=== PATIENT | female | born 1995 | race Caucasian/White ===

== ENCOUNTER 2021-01-24 15:26 | Inpatient (IN) ==
[2021-01-24] MEDS ORDERED: SODIUM CHLORIDE 0.9% 1000ML 1,000 ML IV STA (15:37)
--- NOTE | 2021-01-24 16:05 | Emergency Department Note ---
Impression & Plan Severe anemia ED Provider Note INFORMANT: Patient ED PROVIDER(S): Tru Martínez MD CHIEF COMPLAINT: Anemia PLAN: Disposition: Admitted Condition: Guarded Outpatient prescription management: none Referral: None MEDICAL DECISION MAKING: Patient presented with signs and symptoms concerning for severe anemia. Outpatient blood work was very concerning. Blood work was repeated and revealed severe iron deficiency and significant anemia requiring immediate transfusion. The patient was consented. I gave my usual and customary discussion regarding this issue. Blood transfusion was initiated in the ER. Consultation was made with internal medicine, Dr. Solis. The patient was evaluated by the team and admitted for further management. Triage Nursing notes reviewed and agree them. Vital Signs: reviewed and remarkable for mild tachycardia Differential diagnosis:Anemia, Infection, dehydration, metabolic abnormality, hypo/hyperglycemia, electrolyte disturbance, anemia, hypoxia, cardiac sources, intracerebral event, toxicologic, neurologic, as well as other pathologies. Diagnostics interpreted by me: ECG: none Cardiac Monitoring: Cardiac monitoring ordered by me: The patient was placed on continuous cardiac monitoring and observed. It revealed a normal sinus rhythm at 103 beats per minute without ectopy or evidence of dysrhythmia. Imaging studies: Deferred HPI: The patient is a 25 year old female who presents to the Emergency Room with complaints of anemia. This started yesterday and is from labwork done at [facility]. The patient also notes the following associated symptoms, fatigue, SOB, weakness. The patient has found no relieving factors. Current pain is rated as 0/10. Notes occasional headaches. Nml periods monthly. Pt denies LOC, headache, fevers, chills, diaphoresis, visual changes, neck pain, chest pain, breathing difficulties, nausea, vomiting, abdominal pain, back pain, melena, hematochezia, urinary symptoms, numbness, lymphadenopathy, rash, or other complaints. ROS: See above HPI for pertinent positives & negatives. A total of 10 systems reviewed and were otherwise negative. PAST MEDICAL HISTORY:See Below , COVID PAST SURGICAL HISTORY:See Below, FAMILY HISTORY:See Below SOCIAL HISTORY:See Below, Occasional ETOH HOME MEDICATIONS:See Below ALLERGIES:See Below VITALS:See Below PHYSICAL EXAMINATION: GENERAL: Awake, alert, well-appearing, in no distress HENT: Normocephalic, atraumatic. Oropharynx unremarkable. EYES: Pale conjunctiva. Sclera non-icteric. NECK: Inspection normal. Non-tender. Supple. No nuchal rigidity. FROM. No masses. RESPIRATORY: Clear to auscultation. No wheezes. No rales. Normal respiratory effort. CARDIAC: Tachycardic rate. Normal rhythm. Mild flow murmur. No rubs. Extremities warm and well perfused. Pulses equal. No JVD. GI: Soft, non-distended. No tenderness to palpation. No rebound or guarding. No masses. RECTAL: Deferred. MUSCULOSKELETAL: Atraumatic. Chest examination reveals no tenderness. The back is symmetrical on inspection without obvious abnormality. There is no CVA tenderness to palpation. No joint edema. LOWER EXTREMITIES: Calves are equal size bilaterally and non-tender. No edema. No discoloration. NEURO: Normal sensorium. No sensory or motor deficits noted. SKIN: Pale, No rash or jaundice noted. CRITICAL CARE: I have personally spent greater than 40 minutes of critical care time in the direct management of this patient. This includes bedside care, interpretation of diagnostic studies, and testing, discussion with consultants and patient and other required patient management activities. This 40 minutes is in excess of all separately billable procedures. Tru Martínez MD Past Med/Surg History Social History Smoking Status: Never smoker Hx Alcohol Use: Yes Alcohol type: hard liquor Hx Substance Use: Yes Last Used Substance Other:: 2 weeks ago Preferred Language: Bulgarian Drive Tester Required: No Beliefs That Will Affect Care: None Current Living Situation: Alone Other Information That Helps Us Care for You: No Feels Safe at Home: Yes Safety Concerns: Feels Safe At This Time Assistive Devices: Hearing Aid - Bilateral Allergies Allergies Allergy/AdvReac Type Severity Reaction Status Date / Time amoxicillin Allergy Hives Unverified 01/24/21 17:45 Home Meds Home Medications Medication Instructions Recorded Confirmed ibuprofen 200 mg tablet 200 mg PO Q6H PRN 01/24/21 01/24/21 melatonin 10 mg disintegrating 10 mg PO HS PRN 01/24/21 01/24/21 tablet Results & Data (ED) Vital Signs Vital Signs - 24 hr 01/24/21 15:45 01/24/21 16:00 01/24/21 16:30 Temperature 37.2 C Temperature Source Oral Pulse Rate 70 102 H 97 H Pulse Rate from SpO2 Sensor 104 H 99 H Respiratory Rate 17 19 12 Respiratory Effort / Characteristics Non-Labored Spontaneous Blood Pressure 123/81 113/70 119/72 Blood Pressure Mean 95 84 87 Blood Pressure Position Lying Pulse Oximetry 95 100 100 Oxygen Delivery Method Room Air Sepsis Recent Fever Within 48 Hours No Sepsis New/Unexplained Change in Mental Status No Sepsis Action Taken by Nursing No Action Required 01/24/21 16:47 01/24/21 17:02 01/24/21 17:15 Temperature Temperature Source Pulse Rate 91 H 88 Pulse Rate from SpO2 Sensor 91 H 88 Respiratory Rate 16 21 Respiratory Effort / Characteristics Blood Pressure Blood Pressure Mean Blood Pressure Position Pulse Oximetry 95 100 100 Oxygen Delivery Method Room Air Sepsis Recent Fever Within 48 Hours Sepsis New/Unexplained Change in Mental Status Sepsis Action Taken by Nursing 01/24/21 17:52 01/24/21 18:11 01/24/21 18:13 Temperature 37.3 C 37.4 C 37.4 C Temperature Source Oral Oral Oral Pulse Rate 96 H 92 H 100 H Pulse Rate from SpO2 Sensor Respiratory Rate 18 18 18 Respiratory Effort / Characteristics Blood Pressure 108/63 113/64 113/64 Blood Pressure Mean 78 80 80 Blood Pressure Position Semi-fowlers Semi-fowlers Semi-fowlers Pulse Oximetry 100 100 100 Oxygen Delivery Method Sepsis Recent Fever Within 48 Hours Sepsis New/Unexplained Change in Mental Status Sepsis Action Taken by Nursing Laboratory Data Result diagrams: 01/24/21 15:50 01/24/21 15:50 Lab Results 01/24/21 01/24/21 01/24/21 Range/Units 15:50 15:50 15:50 WBC 2.82 L (4.8-10.8) K/uL RBC 2.20 L (4.2-5.4) M/uL Hgb 3.6 L* (12.0-16.0) g/dL Hct 14.9 L* (37-47) % MCV 67.7 L (80-100) fL MCH 16.4 L (25-34) pg MCHC 24.2 L (32-36) g/dL RDW Std Deviation 55.6 H (36.4-46.3) fL RDW Coeff of Roxy 22.5 H (11.5-14.5) % Plt Count 213 (130-400) K/uL MPV 9.5 (7.4-10.4) fL Immature Gran % (Auto) 0.4 % Neut % (Auto) 68.7 % Lymph % (Auto) 20.9 % Gentry % (Auto) 9.6 % Eos % (Auto) 0.0 % Baso % (Auto) 0.4 % Reticulocyte % (Auto) (0.5-2.0) % Neut # (Auto) 1.94 (1.4-6.5) K/uL Lymph # (Auto) 0.59 L (1.2-3.4) K/uL Gentry # (Auto) 0.27 (0.11-0.59) K/uL Eos # (Auto) 0.00 (0-0.5) K/uL Baso # (Auto) 0.01 (0-0.2) K/uL Reticulocyte # (0.02-0.10) 10^6/uL Immature Gran # (Auto) 0.01 (0.00-0.02) K/uL Hypochromasia Present Poikilocytosis Present Anisocytosis Present ESR PT 10.6 (9.0-12.0) Seconds INR 1.0 (0.9-1.1) APTT < 20.0 L (21.0-31.0) Seconds PTT Ratio 0.8 Sodium (136-145) mmol/L Potassium (3.5-5.1) mmol/L Chloride (98-107) mmol/L Carbon Dioxide (21-32) mmol/L Anion Gap (3-11) BUN (7-18) mg/dl Creatinine (0.6-1.2) mg/dl Est Cr Clr Drug Dosing ml/min Est GFR ( Amer) ml/min Est GFR (Non-Af Amer) ml/min BUN/Creatinine Ratio (10-20) Glucose (70-99) mg/dl Calcium (8.5-10.1) mg/dl Iron (35-150) mcg/dl TIBC (250-450) mcg/dl Transferrin (200-360) mg/dl Ferritin (8-388) ng/ml Total Bilirubin (0.2-1) mg/dl AST (15-37) U/L ALT (12-78) U/L Alkaline Phosphatase (45-117) U/L C-Reactive Protein (0-0.29) mg/dl Total Protein (6.4-8.2) gm/dl Albumin (3.4-5.0) gm/dl Globulin (2.5-4.0) gm/dl Albumin/Globulin Ratio (0.9-2) Vitamin B12 (193-986) pg/ml Folate (>5.38) ng/ml TSH (0.300-4.500) uIu/ml HCG, Qual (Negative) COVID-19 Eval Order SARS-CoV-2 (PCR) (Negative) Blood Type O Positive Blood Type Recheck Antibody Screen NEGATIVE Crossmatch See Detail 01/24/21 01/24/21 01/24/21 Range/Units 15:50 15:50 15:50 WBC (4.8-10.8) K/uL RBC (4.2-5.4) M/uL Hgb (12.0-16.0) g/dL Hct (37-47) % MCV (80-100) fL MCH (25-34) pg MCHC (32-36) g/dL RDW Std Deviation (36.4-46.3) fL RDW Coeff of Roxy (11.5-14.5) % Plt Count (130-400) K/uL MPV (7.4-10.4) fL Immature Gran % (Auto) % Neut % (Auto) % Lymph % (Auto) % Gentry % (Auto) % Eos % (Auto) % Baso % (Auto) % Reticulocyte % (Auto) 5.4 H (0.5-2.0) % Neut # (Auto) (1.4-6.5) K/uL Lymph # (Auto) (1.2-3.4) K/uL Gentry # (Auto) (0.11-0.59) K/uL Eos # (Auto) (0-0.5) K/uL Baso # (Auto) (0-0.2) K/uL Reticulocyte # 0.12 H (0.02-0.10) 10^6/uL Immature Gran # (Auto) (0.00-0.02) K/uL Hypochromasia Poikilocytosis Anisocytosis ESR Cancelled PT (9.0-12.0) Seconds INR (0.9-1.1) APTT (21.0-31.0) Seconds PTT Ratio Sodium 139 (136-145) mmol/L Potassium 3.7 (3.5-5.1) mmol/L Chloride 112 H (98-107) mmol/L Carbon Dioxide 23 (21-32) mmol/L Anion Gap 4.0 (3-11) BUN 8 (7-18) mg/dl Creatinine 0.65 (0.6-1.2) mg/dl Est Cr Clr Drug Dosing 122.6 ml/min Est GFR ( Amer) 143.0 ml/min Est GFR (Non-Af Amer) 123.4 ml/min BUN/Creatinine Ratio 12.5 (10-20) Glucose 108 H (70-99) mg/dl Calcium 8.7 (8.5-10.1) mg/dl Iron (35-150) mcg/dl TIBC (250-450) mcg/dl Transferrin (200-360) mg/dl Ferritin (8-388) ng/ml Total Bilirubin 0.7 (0.2-1) mg/dl AST 6 L (15-37) U/L ALT 12 (12-78) U/L Alkaline Phosphatase 40 L (45-117) U/L C-Reactive Protein (0-0.29) mg/dl Total Protein 6.5 (6.4-8.2) gm/dl Albumin 3.7 (3.4-5.0) gm/dl Globulin 2.8 (2.5-4.0) gm/dl Albumin/Globulin Ratio 1.3 (0.9-2) Vitamin B12 (193-986) pg/ml Folate (>5.38) ng/ml TSH (0.300-4.500) uIu/ml HCG, Qual (Negative) COVID-19 Eval Order SARS-CoV-2 (PCR) (Negative) Blood Type Blood Type Recheck Antibody Screen Crossmatch 01/24/21 01/24/21 01/24/21 Range/Units 15:53 15:53 15:53 WBC (4.8-10.8) K/uL RBC (4.2-5.4) M/uL Hgb (12.0-16.0) g/dL Hct (37-47) % MCV (80-100) fL MCH (25-34) pg MCHC (32-36) g/dL RDW Std Deviation (36.4-46.3) fL RDW Coeff of Roxy (11.5-14.5) % Plt Count (130-400) K/uL MPV (7.4-10.4) fL Immature Gran % (Auto) % Neut % (Auto) % Lymph % (Auto) % Gentry % (Auto) % Eos % (Auto) % Baso % (Auto) % Reticulocyte % (Auto) (0.5-2.0) % Neut # (Auto) (1.4-6.5) K/uL Lymph # (Auto) (1.2-3.4) K/uL Gentry # (Auto) (0.11-0.59) K/uL Eos # (Auto) (0-0.5) K/uL Baso # (Auto) (0-0.2) K/uL Reticulocyte # (0.02-0.10) 10^6/uL Immature Gran # (Auto) (0.00-0.02) K/uL Hypochromasia Poikilocytosis Anisocytosis ESR PT (9.0-12.0) Seconds INR (0.9-1.1) APTT (21.0-31.0) Seconds PTT Ratio Sodium (136-145) mmol/L Potassium (3.5-5.1) mmol/L Chloride (98-107) mmol/L Carbon Dioxide (21-32) mmol/L Anion Gap (3-11) BUN (7-18) mg/dl Creatinine (0.6-1.2) mg/dl Est Cr Clr Drug Dosing ml/min Est GFR ( Amer) ml/min Est GFR (Non-Af Amer) ml/min BUN/Creatinine Ratio (10-20) Glucose (70-99) mg/dl Calcium (8.5-10.1) mg/dl Iron 12 L (35-150) mcg/dl TIBC 563 H (250-450) mcg/dl Transferrin 404 H (200-360) mg/dl Ferritin 0.7 L (8-388) ng/ml Total Bilirubin (0.2-1) mg/dl AST (15-37) U/L ALT (12-78) U/L Alkaline Phosphatase (45-117) U/L C-Reactive Protein < 0.29 (0-0.29) mg/dl Total Protein (6.4-8.2) gm/dl Albumin (3.4-5.0) gm/dl Globulin (2.5-4.0) gm/dl Albumin/Globulin Ratio (0.9-2) Vitamin B12 147 L (193-986) pg/ml Folate 18.40 (>5.38) ng/ml TSH 0.536 (0.300-4.500) uIu/ml HCG, Qual Negative (Negative) COVID-19 Eval Order SARS-CoV-2 (PCR) (Negative) Blood Type Blood Type Recheck Antibody Screen Crossmatch 01/24/21 01/24/21 01/24/21 Range/Units 16:33 16:33 17:02 WBC (4.8-10.8) K/uL RBC (4.2-5.4) M/uL Hgb (12.0-16.0) g/dL Hct (37-47) % MCV (80-100) fL MCH (25-34) pg MCHC (32-36) g/dL RDW Std Deviation (36.4-46.3) fL RDW Coeff of Roxy (11.5-14.5) % Plt Count (130-400) K/uL MPV (7.4-10.4) fL Immature Gran % (Auto) % Neut % (Auto) % Lymph % (Auto) % Gentry % (Auto) % Eos % (Auto) % Baso % (Auto) % Reticulocyte % (Auto) (0.5-2.0) % Neut # (Auto) (1.4-6.5) K/uL Lymph # (Auto) (1.2-3.4) K/uL Gentry # (Auto) (0.11-0.59) K/uL Eos # (Auto) (0-0.5) K/uL Baso # (Auto) (0-0.2) K/uL Reticulocyte # (0.02-0.10) 10^6/uL Immature Gran # (Auto) (0.00-0.02) K/uL Hypochromasia Poikilocytosis Anisocytosis ESR PT (9.0-12.0) Seconds INR (0.9-1.1) APTT (21.0-31.0) Seconds PTT Ratio Sodium (136-145) mmol/L Potassium (3.5-5.1) mmol/L Chloride (98-107) mmol/L Carbon Dioxide (21-32) mmol/L Anion Gap (3-11) BUN (7-18) mg/dl Creatinine (0.6-1.2) mg/dl Est Cr Clr Drug Dosing ml/min Est GFR ( Amer) ml/min Est GFR (Non-Af Amer) ml/min BUN/Creatinine Ratio (10-20) Glucose (70-99) mg/dl Calcium (8.5-10.1) mg/dl Iron (35-150) mcg/dl TIBC (250-450) mcg/dl Transferrin (200-360) mg/dl Ferritin (8-388) ng/ml Total Bilirubin (0.2-1) mg/dl AST (15-37) U/L ALT (12-78) U/L Alkaline Phosphatase (45-117) U/L C-Reactive Protein (0-0.29) mg/dl Total Protein (6.4-8.2) gm/dl Albumin (3.4-5.0) gm/dl Globulin (2.5-4.0) gm/dl Albumin/Globulin Ratio (0.9-2) Vitamin B12 (193-986) pg/ml Folate (>5.38) ng/ml TSH (0.300-4.500) uIu/ml HCG, Qual (Negative) COVID-19 Eval Order Covid19 at [facility] SARS-CoV-2 (PCR) NEGATIVE (Negative) Blood Type Blood Type Recheck O Positive Antibody Screen Crossmatch Administered Medications Sodium Chloride (Nss 1000ml) 1,000 mls @ 125 mls/hr IV .Q8H STA Stop: 01/24/21 23:36 Last Infusion: 01/24/21 18:17 Dose: 0 mls/hr Documented by: [id number] Admin: 01/24/21 16:17 Dose: 125 mls/hr Documented by: [id number] Sodium Chloride (Nss) 250 mls @ 15 mls/hr IV .[id number] PRN PRN Reason: For Transfusion Stop: 01/25/21 02:13 Last Admin: 01/24/21 18:19 Dose: 15 mls/hr Documented by: [id number] Infusion: 01/24/21 18:19 Dose: 15 mls/hr Documented by: [id number] Admin: 01/24/21 18:18 Dose: 15 mls/hr Documented by: [id number] Discharge Plan Visit Data Chief Complaint: Abnormal Labs/Diagnostic Testing Stated Complaint: REFERRED BY URGENTCARE- ANEMIC, BLOOD TRANSFUSION ED Provider: Tru Martínez Discharge Problem: Severe anemia Patient Disposition: Admitted As Inpatient Discharge Instructions Interventions: ED Discharge Assessment Last Done: 01/24/21 19:26
[2021-01-24 16:14] LABS: Partial Thromboplastin Ratio 0.8; Prothrombin Time 10.6 Seconds (9.0-12.0)
[2021-01-24 16:18] LABS: Albumin Level 3.7 gm/dl (3.4-5.0); BUN Creatinine Ratio 12.5 (10-20); Calcium 8.7 mg/dl (8.5-10.1); Creatinine Clr Calc Pharmacy 122.6 ml/min; Est GFR (Non-African American) 123.4 ml/min; Potassium 3.7 mmol/L (3.5-5.1)
[2021-01-24 16:20] LABS: Partial Thromboplastin Time < 20.0 Seconds (21.0-31.0)
[2021-01-24 16:21] LABS: Albumin Globulin Ratio 1.3 (0.9-2); Bilirubin,Total 0.7 mg/dl (0.2-1); Globulin 2.8 gm/dl (2.5-4.0); Total Protein 6.5 gm/dl (6.4-8.2)
[2021-01-24 16:27] LABS: Pregnancy Test, Serum Negative (Negative)
[2021-01-24 16:37] LABS: Ferritin 0.7 ng/ml (8-388); Iron 12 mcg/dl (35-150); Total Iron Binding Capacity 563 mcg/dl (250-450); Transferrin 404 mg/dl (200-360)
[2021-01-24 16:40] LABS: Anisocytosis Present; Basophils # (auto) 0.01 K/uL (0-0.2); Basophils % (auto) 0.4 %; Hematocrit (blood only) 14.9 % (37-47); Hemoglobin 3.6 g/dL (12.0-16.0); Hypochromasia Present; Immature Granulocytes # (auto) 0.01 K/uL (0.00-0.02); Immature Granulocytes % (auto) 0.4 %; Lymphocytes # (auto) 0.59 K/uL (1.2-3.4); Lymphocytes % (auto) 20.9 %; Mean Corpuscular Hemoglobin 16.4 pg (25-34); Mean Corpuscular Hgb Conc 24.2 g/dL (32-36); Mean Corpuscular Volume 67.7 fL (80-100); Mean Platelet Volume 9.5 fL (7.4-10.4); Monocytes # (auto) 0.27 K/uL (0.11-0.59); Monocytes % (auto) 9.6 %; Neutrophils # (auto) 1.94 K/uL (1.4-6.5); Neutrophils % (auto) 68.7 %; Platelet Count 213 K/uL (130-400); Poikilocytosis Present; RDW Coefficient of Variation 22.5 % (11.5-14.5); RDW Standard Deviation 55.6 fL (36.4-46.3); White Blood Count 2.82 K/uL (4.8-10.8)
[2021-01-24 17:05] LABS: Folate (Folic Acid) 18.4 ng/ml (>5.38)
[2021-01-24 18:09] LABS: C Reactive Protein < 0.29 mg/dl (0-0.29); Thyroid Stimulating Hormone 0.536 uIu/ml (0.300-4.500)
[2021-01-24] MEDS: SODIUM CHLORIDE 0.9% 250 ML IV PRN ×2 (18:18→18:19)
[2021-01-24 18:33] LABS: Reticulocyte % 5.4 % (0.5-2.0); Reticulocytes # 0.12 10^6/uL (0.02-0.10)
--- NOTE | 2021-01-24 18:35 | History & Physical Report ---
Date of Service January 24, 2021 Assessment & Plan (1) Severe anemia: Plan: Gabby is a very pleasant 25-year-old female with a notable history of COVID-19 infection in 09/2020 and anxiety who presents to [facility] for evaluation of anemia (following referral from urgent care), subsequently found to have microcytic, hypochromic anemia, as well as leukopenia of unclear etiology. She is hemodynamically stable. Bicytopenia (Microcytic, hypochromic anemia / Leukopenia) Unclear chronicity of this bicytopenia; patient reporting approximately 2 months of exertional exhaustion. No known history of hematologic diseases. No clear history of bleeding. Work-up as follows: Hemoglobin on arrival 3.6. Microcytic, hypochromic. Leukopenia to 2.8 Iron studies demonstrating high TIBC, transferrin, profoundly low ferritin, profoundly low iron Moderately low B12 at 147, normal folate LFTs normal, bili within normal limits Etiology is unclear at this time; given the iron deficiency studies, as well as B12, malabsorption is considered as an etiologyalthough there does not seem to be symptoms along the spectrum. Denying history of nutritional restriction. It is also possible that in the setting of recent COVID-19 infection, this could represent myelosuppression - could also be d/t other viruses, EBV, CMV, etc. Hemorrhage considered, although this seems less likely given lack of source and +leukopenia. Malignancy also considered. No new medications to suggest side effect. Add the following labs: Erythropoietin, TSH, IgA tissue transglutaminase, fecal occult blood, reticulocyte count, peripheral smear Proceed with 3 units packed red blood cells --recheck hemoglobin and hematocrit at 2330 Careful hemodynamic monitoring -- thankfully, patient was completely stable upon arrival. Consult Hematology for further aid with management/diagnostic testing, as well as planning for going forward CBC in AM Code: Full code Diet: Full/regular Dispo: Medical/surgery with telemetry Prophylaxis: SCDs. History of Present Illness Primary Care Provider: Almas Krause DO Gabby is a very pleasant 25-year-old female with a notable history of COVID- 19 infection in 09/2020 and anxiety who presents to [facility] for anemia; of note, she was previously seen by urgent care prior to arrival, w as found to have a hemoglobin of 3 and iron of 12, and was told to report to the emergency room for further evaluation. Gabby reports that over the past 2 months, she has been feeling progressively more fatigued. She says she gets extremely exhausted with any sort of exertion, and will often feel winded from basic activities. She also does endorse mild, intermittent chest pressure with exertion as well. She says this is the first time she has ever felt this way. The only trigger she can think of is COVID-19. Around the time of symptom onset, approximately 2 months ago, she denies any i nitiation of medication, changes in lifestyle habits including dietary habits, as well as any diagnosis of new medical conditions. There has been no bleeding that has been out of the ordinary for her; she reports that her menstrual periods are regular, occurring approximately once every month with a normal amount of bleeding. She denies any hematochezia or melena. She denies any hematuria. She reports that over this time, she has had no symptoms of infection including fevers, chills, night sweats, she denies any joint pains, she denies any rashes. Denies any trouble swallowing. Denies any troubles with any specific foods, no frequent nausea, vomiting, diarrhea. 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 She has had to cut back on the amount of work she has been doing lately because of the increased fatigue. She does report a history of drinking 2 to 3 glasses of whiskey nightly up through a couple weeks ago; she denied ever to the point of blacking out. She denied any use of any recreational drugs. She endorses intermittent use of tobacco products, but not on a regular basis. From the past medical history perspective, she was on Prozac from Fall 2019 to July 2020, but subsequently self discontinued this. Otherwise, she is only on melatonin. She notes that she has "always bruise easily, "but is never had problems with blood counts or has been told so in the past. From a family history perspective, she denies any hematologic or coagulation related disorders. She denies any history of rheumatologic disorders. Denies any history of GI conditions, inclusive of celiac, Crohn's, and ulcerative colitis. Denies any history of cancers that tend to run throughout the family. She does say that her dad has diabetes, and heart disease runs to her mom's f amily. In the ED, patient was found to be hemodynamically stable and afebrile. Her complete blood count was significant for profound microcytic, hypochromic anemia to 3.6 (hematocrit 15), leukopenia with lymphopenia, and normal platelets. Her iron studies were significant for a profound iron deficiency. Her B12 was slightly low. Her liver enzymes, inclusive of bilirubin, were normal. She was typed and crossed, O+/Ig negative. 3 units of packed red blood cells were ordered. Allergies Allergy/AdvReac Type Severity Reaction Status Date / Time amoxicillin Allergy Hives Unverified 01/24/21 17:45 Home Medications Medication Instructions Recorded Confirmed Type ibuprofen 200 mg tablet 200 mg PO Q6H PRN 01/24/21 01/24/21 History melatonin 10 mg disintegrating 10 mg PO HS PRN 01/24/21 01/24/21 History tablet Past Med/Surg History Social History Smoking Status: Never smoker Hx Alcohol Use: Yes Alcohol type: hard liquor Hx Substance Use: Yes Last Used Substance Other:: 2 weeks ago Preferred Language: Qatari Mental Retardation Aide Required: No Beliefs That Will Affect Care: None Current Living Situation: Alone Other Information That Helps Us Care for You: No Feels Safe at Home: Yes Safety Concerns: Feels Safe At This Time Assistive Devices: Hearing Aid - Bilateral Review of Systems Review of Systems: Constitutional: Denies fever, chills, malaise, weight change Eyes: Denies double vision, vision change, eye pain ENT: Denies ear pain, sore throat, sinus pain Cardiovascular: As per HPI Respiratory: +SOB, denies cough, sputum production, difficulty breathing Gastrointestinal: Denies abdominal pain, nausea, vomiting, constipation, diarrhea Genitourinary: Denies urinary symptoms including dysuria Musculoskeletal: Denies weakness, muscle aches/pain, joint aches/pain Integumentary:Denies rash, lesions, bruising Neurological: Denies numbness, tingling, focal weakness Physical Exam Physical Exam: General: Tired, but surprisingly well-appearing 25-year-old female who is lying back in her hospital bed, relaxed, upon my arrival. Her fianc is at the bedside. She is fully alert and oriented. No acute distress. HEENT: NCAT. Eyes - Sclera are white, anicteric, and without injection. There is conjunctival pallor. PERRL. EOMs display full ROM bilaterally. Mouth - MMM with no tonsillar edema or exudates. No angular cheilitis, no glossitis. Neck - supple and without LAD. Thyroid - no appreciable goiter or nodules. Cardiac: Normal rate and regular rhythm; S1 and S2 present. There are appreciable, soft systolic murmurs best heard at the right upper sternal border, that do extend equally throughout the heart. No rubs or gallops. Pulmonary: Good respiratory effort with symmetric expansion of the chest. No use of accessory muscles. Lungs were clear to auscultation bilaterally with no crackles or wheezes. Abdominal: Normoactive bowel sounds. Abdomen was soft, nondistended, and non- tender to palpation. Extremities: Examination of the upper extremities reveals normal curvature of the nails. Skin is intact. Capillary refill at approximately 3 seconds. Psych: Well-developed, well-nourished, appropriately dressed for occasion. Behavior is cooperative and appropriate. Affect is WNL. Insight is appropriate. Results & Data Results & Data ([facility]) Vital Signs (Past 12 Hours) Vital Signs Temp Pulse Resp BP Pulse Ox 01/24/21 18:13 37.4 C 100 H 18 113/64 100 01/24/21 18:11 37.4 C 92 H 18 113/64 100 01/24/21 17:52 37.3 C 96 H 18 108/63 100 01/24/21 17:15 88 21 100 01/24/21 17:02 91 H 16 100 01/24/21 16:47 95 01/24/21 16:30 97 H 12 119/72 100 01/24/21 16:00 102 H 19 113/70 100 01/24/21 15:45 37.2 C 70 17 123/81 95 Code Status & VTE Plan VTE Prophylaxis Plan VTE Prophylaxis will be ordered: Yes Supervising Physician Co-Signing Physician Notes Patient seen and examined, chart reviewed, case discussed with Dr. Leyva and I agree with his assessment and plan as above. In brief, patient is a 25yo female with history of Covid-19 infection in September presenting with progressive fatigue. Found to have anemia and leukopenia. Hgb=3.6, Hct=14.9, microcytic/hypochromic with decreased Fe and Ferritin levels, elevated TIBC Patient with low reticulocyte production index of 0.77 suggesting hypoproliferation Also with low B12 levels No laboratory evidence to suggest hemolysis No excessive or suggestion of occult blood loss per history On exam patient is afebrile, HD stable, NAD Pale +ENDER across precordium Exam otherwise unremarkable Labs and images reviewed Assessment/Plan - 25yo previously healthy female with no significant past medical history presenting with bicytopenia, Hgb of 3.6. Iron deficiency, low reticulocyte count for degree of anemia, low B12 as well. ?viral suppression secondary to Covid or other infection. Less likely hemolysis or blood loss -Transfuse 3u PRBCs -Monitor CBC -Hematology consultation appreciated -Remainder of plan as above Resident Activity Tracking Resident Involvement: Resident Care Provided Care Provided: Adult Hospital Medicine
[2021-01-24] MEDS ORDERED: ACETAMINOPHEN 325 MG TAB PO PRN (20:10)
[2021-01-24] MEDS ORDERED: ONDANSETRON INJ 2 MG/ML 2 ML VIAL IV PRN (20:10)
[2021-01-24] MEDS ORDERED: SODIUM CHLORIDE 0.9% 250 ML IV PRN (20:10)
[2021-01-24] MEDS ORDERED: POLYETHYLENE (MIRALAX) 17 GM PACK PO PRN (20:10)
[2021-01-24] MEDS ORDERED: MAGNESIUM HYDROXIDE SUSP 30 ML UDC PO PRN (20:10)
[2021-01-24] MEDS ORDERED: MELATONIN 3 MG TAB PO PRN (20:13)
--- NOTE | 2021-01-24 21:34 | Billing Data ---
Date of Service January 24, 2021 Coding Level of Care Code 57584 Initial Inpt Care Lvl 2
[2021-01-25 03:01] LABS: Alanine Aminotransferase 10 U/L (12-78); Albumin Level 3.5 gm/dl (3.4-5.0); Aspartate Aminotransferase 9 U/L (15-37); BUN Creatinine Ratio 16.9 (10-20); Blood Urea Nitrogen 7 mg/dl (7-18); Calcium 8.6 mg/dl (8.5-10.1); Carbon Dioxide 23 mmol/L (21-32); Chloride 114 mmol/L (98-107); Creatinine Clr Calc Pharmacy 191.4 ml/min; Est GFR (African American) > 150.0 ml/min; Est GFR (Non-African American) 142.5 ml/min; Glucose 81 mg/dl (70-99); Potassium 3.9 mmol/L (3.5-5.1); Sodium 140 mmol/L (136-145)
[2021-01-25 03:03] LABS: Albumin Globulin Ratio 1.5 (0.9-2); Alkaline Phosphatase 33 U/L (45-117); Bilirubin,Total 1.2 mg/dl (0.2-1); Globulin 2.4 gm/dl (2.5-4.0); Total Protein 5.9 gm/dl (6.4-8.2)
[2021-01-25 03:12] LABS: Hematocrit (blood only) 21.8 % (37-47); Hemoglobin 6.4 g/dL (12.0-16.0); Mean Corpuscular Hemoglobin 21.6 pg (25-34); Mean Corpuscular Hgb Conc 29.4 g/dL (32-36); Mean Corpuscular Volume 73.6 fL (80-100); Mean Platelet Volume 9.8 fL (7.4-10.4); Nucleated RBC # (auto) 0.02 K/uL (0-0); Nucleated RBC % (auto) 0.5 %; Platelet Count 201 K/uL (130-400); RDW Coefficient of Variation 21.7 % (11.5-14.5); RDW Standard Deviation 58.4 fL (36.4-46.3); Red Blood Count 2.96 M/uL (4.2-5.4); White Blood Count 3.83 K/uL (4.8-10.8)
[2021-01-25 03:14] LABS: Anisocytosis Present; Basophils # (auto) 0.01 K/uL (0-0.2); Basophils % (auto) 0.3 %; Eosinophils # (auto) 0.04 K/uL (0-0.5); Giant Platelets 1+; Hypochromasia Present; Lymphocytes # (auto) 0.97 K/uL (1.2-3.4); Lymphocytes % (auto) 25.3 %; Microcytosis Present; Monocytes # (auto) 0.46 K/uL (0.11-0.59); Neutrophils # (auto) 2.35 K/uL (1.4-6.5); Neutrophils % (auto) 61.4 %; Ovalocytes 1+
[2021-01-25] MEDS ORDERED: SODIUM CHLORIDE 0.9% 250 ML IV PRN (03:19)
[2021-01-25 03:45] LABS: Nucleated RBC # (auto) 0.02 K/uL (0-0); Nucleated RBC % (auto) 0.6 %
--- NOTE | 2021-01-25 07:54 | Hospitalist Progress Note ---
Date of Service January 25, 2021 Assessment & Plan (1) Severe anemia: Plan: Gabby West is a 25yo female with a PMH notable for COVID-19 infection in (09/2020), hereditary incomplete hearing loss, and anxiety who presents to [facility] [place] for evaluation of anemia (following referral from urgent care). Found on admission with microcytic, hypochromic anemia, as well as leukopenia of unclear etiology. Patient has been hemodynamically stable since arrival to [facility] [place]. Severe iron deficiency anemia Unclear chronicity; patient reports 2-3 months of shaxzyjq-xl-cpblbt exertional fatigue, no recent dyspnea, lightheadedness, dizziness, syncope, abdominal pain Unclear etiology; no known history of hematological disease, no recent trauma, no known bleeding, no new meds Differential includes malabsorption (e.g. celiac), myelosuppression (2/2 covid or other viruses), malignancy Hemorrhage seems unlikely given lack of source, though FOBT still pending Hgb on arrival 3.6 - microcytic, hypochromic, with leukopenia to 2.8 Iron profile consistent with severe iron deficiency - profoundly low iron and ferritin, high TIBC and ferritin Reticulocyte count elevated but not proportional to degree of anemia (reticulocyte index 0.77); RDW 21.7% B12 low, folate wnl Normal ALT, low AST and, alk phos; Tbili wnl on admission but repeat value 1.2 EPO, TSH, IgA tissue transglutaminase, FOBT, peripheral smear, serum haptoglobin pending Patient is s/p 5u pRBC transfusion Hematology consulted Hgb/Hct q12h Leukopenia WBC of 2.8 on admission Possibly secondary to myelosuppression as above Appreciate hematology insight FEN: regular diet Code status: full code DVT ppx: SCDs Isolation: none Consults: heme/onc Dispo: med/surg telemetry Admission and Anticipated Discharge Date Admission Date: January 24, 2021 Subjective Patient seen and evaluated at bedside this morning. No acute events overnight. Patient reports feeling much better after receiving a few units of blood. Weakness has improved though patient has not been OOB or exerted herself yet. Patient denies CP, SOB, abdominal pain, nausea, vomiting, lightheadedness, dizziness, back pain, weakness, confusion, dysuria, diarrhea, or other symptoms. Patient notes a history of irregular menses occurring every 20-30 days, typically lasting 3-4 days, with mild/moderate bleeding (estimates she goes through four pads per day maximum). Review of Systems Review of Systems: See HPI Physical Exam Physical Exam: Constitutional: well-appearing, no acute distress, laying comfortably in bed HEENT: NCAT CV: regular rhythm, no murmur appreciated, extremities well-perfused Resp: CTABL, no wheezes/rales/rhonchi appreciated, no increased work of breathing Skin: warm, dry, no rash appreciated Neuro: AOx4, no focal neurological deficits appreciated Results & Data Results & Data ([facility]) Vital Signs (Past 12 Hours) Vital Signs Temp Pulse Pulse Resp BP BP Pulse Ox 01/25/21 07:47 70 14 106/66 01/25/21 07:18 36.7 C 75 16 111/67 96 01/25/21 07:16 68 14 111/67 01/25/21 06:46 16 109/59 L 98 01/25/21 06:33 16 01/25/21 06:31 68 111/67 99 01/25/21 06:15 36.7 C 70 16 108/71 100 01/25/21 05:56 36.7 C 74 20 113/67 100 01/25/21 04:59 36.7 C 75 16 102/64 100 01/25/21 04:29 36.8 C 76 16 109/67 100 01/25/21 04:14 36.9 C 79 16 107/65 99 01/25/21 04:12 36.9 C 79 18 107/65 99 01/25/21 03:53 36.8 C 75 18 111/62 100 01/25/21 02:52 36.7 C 77 18 110/66 99 01/25/21 02:13 82 01/25/21 01:34 36.8 C 71 16 108/68 100 01/24/21 23:58 36.8 C 71 16 108/68 100 01/24/21 23:36 36.9 C 81 16 103/65 01/24/21 23:28 36.9 C 81 16 103/65 100 01/24/21 23:13 37.0 C 74 16 104/62 100 01/24/21 22:52 36.9 C 94 H 16 108/66 100 01/24/21 21:34 36.9 C 85 16 107/68 99 01/24/21 21:11 36.9 C 90 16 99/63 L 100 01/24/21 21:05 36.7 C 84 16 117/71 100 01/24/21 20:50 36.7 C 85 16 112/59 L 100 01/24/21 20:30 36.7 C 77 14 111/63 99 01/24/21 20:29 36.7 C 77 14 111/63 99
[2021-01-25 09:31] LABS: Bacteria Urine Automated 2+ (Negative); Epithelial Cell Urine Auto >30 /lpf (0-5); RBC Urine Automated 0-4 /hpf (0-4)
[2021-01-25 10:30] LABS: Hematocrit (blood only) 28.5 % (37-47); Hemoglobin 8.4 g/dL (12.0-16.0)
[2021-01-25] MEDS ORDERED: CYANOCOBALAMIN 1,000 MCG in SYRINGE 0.97 ML IM SCH (15:00)
[2021-01-25] MEDS ORDERED: CYANOCOBALAMIN 1000 MCG/ML VIAL IM ONE (15:00)
[2021-01-25] MEDS ORDERED: IRON SUCROSE 200 MG in 0.9 % SODIUM CHLORIDE 100 ML IV ONE (15:00)
--- NOTE | 2021-01-25 16:40 | Discharge Summary ---
Date of Service January 25, 2021 Admission HPI Per Admitting Provider Gabby is a very pleasant 25-year-old female with a notable history of COVID-19 infection in 09/2020 and anxiety who presents to [facility] for anemia; of note, she was previously seen by urgent care prior to arrival, was found to have a hemoglobin of 3 and iron of 12, and was told to report to the emergency room for further evaluation. Gabby reports that over the past 2 months, she has been feeling progressively more fatigued. She says she gets extremely exhausted with any sort of exertion, and will often feel winded from basic activities. She also does endorse mild, intermittent chest pressure with exertion as well. She says this is the first time she has ever felt this way. The only trigger she can think of is COVID-19. Around the time of symptom onset, approximately 2 months ago, she denies any initiation of medication, changes in lifestyle habits including dietary habits, as well as any diagnosis of new medical conditions. There has been no bleeding that has been out of the ordinary for her; she reports that her menstrual periods are regular, occurring approximately once every month with a normal amount of bleeding. She denies any hematochezia or melena. She denies any hematuria. She reports that over this time, she has had no symptoms of infection including fevers, chills, night sweats, she denies any joint pains, she denies any rashes. Denies any trouble swallowing. Denies any troubles with any specific foods, no frequent nausea, vomiting, diarrhea. 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 She has had to cut back on the amount of work she has been doing lately because of the increased fatigue. She does report a history of drinking 2 to 3 glasses of whiskey nightly up through a couple weeks ago; she denied ever to the point of blacking out. She denied any use of any recreational drugs. She endorses intermittent use of tobacco products, but not on a regular basis. From the past medical history perspective, she was on Prozac from Fall 2019 to July 2020, but subsequently self discontinued this. Otherwise, she is only on melatonin. She notes that she has "always bruise easily, "but is never had problems with blood counts or has been told so in the past. From a family history perspective, she denies any hematologic or coagulation related disorders. She denies any history of rheumatologic disorders. Denies any history of GI conditions, inclusive of celiac, Crohn's, and ulcerative colitis. Denies any history of cancers that tend to run throughout the family. She does say that her dad has diabetes, and heart disease runs to her mom's family. In the ED, patient was found to be hemodynamically stable and afebrile. Her complete blood count was significant for profound microcytic, hypochromic anemia to 3.6 (hematocrit 15), leukopenia with lymphopenia, and normal platelets. Her iron studies were significant for a profound iron deficiency. Her B12 was slightly low. Her liver enzymes, inclusive of bilirubin, were normal. She was typed and crossed, O+/Ig negative. 3 units of packed red blood cells were ordered. Admission Exam Per Admitting Provider General: Tired, but surprisingly well-appearing 25-year-old female who is lying back in her hospital bed, relaxed, upon my arrival. Her fianc is at the bedside. She is fully alert and oriented. No acute distress. HEENT: NCAT. Eyes - Sclera are white, anicteric, and without injection. There is conjunctival pallor. PERRL. EOMs display full ROM bilaterally. Mouth - MMM with no tonsillar edema or exudates. No angular cheilitis, no glossitis. Neck - supple and without LAD. Thyroid - no appreciable goiter or nodules. Cardiac: Normal rate and regular rhythm; S1 and S2 present. There are appreciable, soft systolic murmurs best heard at the right upper sternal border, that do extend equally throughout the heart. No rubs or gallops. Pulmonary: Good respiratory effort with symmetric expansion of the chest. No use of accessory muscles. Lungs were clear to auscultation bilaterally with no crackles or wheezes. Abdominal: Normoactive bowel sounds. Abdomen was soft, nondistended, and non- tender to palpation. Extremities: Examination of the upper extremities reveals normal curvature of the nails. Skin is intact. Capillary refill at approximately 3 seconds. Psych: Well-developed, well-nourished, appropriately dressed for occasion. Behavior is cooperative and appropriate. Affect is WNL. Insight is appropriate. Principal Diagnosis profound anemia Discharge Exam Constitutional: well-appearing, no acute distress HEENT: NCAT, no conjunctival pallor CV: regular rhythm, no murmur appreciated, extremities well-perfused Resp: CTABL, no wheezes/rales/rhonchi appreciated, no increased work of breathing Skin: warm, dry, no rash appreciated Neuro: AOx4, no focal neurological deficits appreciated Discharge Data Allergies Allergy/AdvReac Type Severity Reaction Status Date / Time amoxicillin Allergy Hives Unverified 01/24/21 17:45 Consultations 01/24/21 18:05 ED Decision to Admit Stat 01/24/21 20:10 Consult Hematology Routine Hospital Course (1) Severe anemia: Severe anemia After admission, patient was transfused with 5u pRBC, with hemoglobin rising appropriately and remaining stable. Iron studies and other labs performed, including peripheral smear, were consistent with severe iron deficiency anemia and B12 deficiency. Patient was without signs of GI bleed or other source of overt bleeding, and patient was without signs of hemolytic anemia. Symptoms were felt to be most consistent with malabsorption. IgA tissue transgluaminase was pending at the time of discharge. Close PCP follow-up was recommended, with a repeat CBC recommended to be performed within 1-2 weeks of discharge. Leukopenia Patient was noted with a leukopenia of 2.8 on admission. Myelosuppression due to recent covid-19 illness (09/2020) or other virus was considered, but patient was without thrombocytopenia. Additionally, patient's peripheral smear was without sign of blood cell dyscrasia. Leukopenia was not felt to be clinically significant. PCP follow-up is recommended. Total Time Total Time Spent Total Time Spent (In Minutes): >30 Discharge Plan Discharge Items Patient Disposition: Home - Self-Care Reason For Visit: PROFOUND ANEMIA Discharge Diagnosis: Anemia Activity: Resume your previous activity Non-emergency contact: Primary Care Provider Call non-emergency contact if: your symptoms worsen Follow-up/Referrals: Almas Krause DO [Primary Care Provider] - Diet: Regular Addtl Attending Provider Instructions: You were admitted to the hospital for anemia. You were treated with blood transfusions, IV iron, and vitamin B12. We are still waiting for some tests to come back before we know the final diagnosis, but we suspect your anemia may be due to celiac disease. It will be important for you to follow up with your primary care provider (Dr. Almas Krause) to continue your care. A discharge summary will be sent to your primary care physician to ensure continuity of care. Please bring this discharge summary with you to your next office appointment so that your provider can review it at that time. Follow-up appointments: We have requested a follow-up appointment with your primary care physician within one week of discharge. Please call their office if you do not hear from them within the next few days. Keep all your follow-up appointments as already scheduled. If you cannot make an appointment, notify your provider. Medications: Your medication list has been reviewed and reconciled upon discharge to ensure accuracy and continuity of care. An updated list of all your medications is included with your hospital discharge paperwork. Please review this list closely, and make note of any changes. * We sent prescriptions for iron supplements and sublingual (under the tongue) vitamin B12 to your pharmacy. Follow the packaging instructions for proper use; Dr. Krause will help you decide if you should take more than what is recommended on the bottle. Take your medications as instructed; do not skip a dose of your medicines. Make sure all of your doctors know every medicine you are taking (including nwur-kom-mtqtjfg medicines, vitamins, and supplements). Call your primary care provider before taking any new medicines (including irbk-vzj-akkcnxd medicines, vitamins, and supplements), because some of these may interact with your current medications, or may make your symptoms worse. Tell your primary care provider if you cannot afford your medications. CONTACT YOUR PRIMARY CARE PROVIDER if you experience any of the following: Worsening fatigue Difficulty following your treatment plan, or difficulty taking medications CALL 911 OR GO TO THE EMERGENCY DEPARTMENT if you experience any of the following: Sudden, severe abdominal pain or nausea/vomiting Severe chest pain, or chest pain that radiates (moves) to your jaw or arm Sudden, severe shortness of breath or difficulty breathing Thank you for allowing us to participate in your care. Pending Studies at Discharge: Yes Stand-Alone Forms: My [facility] Medications and DC Order Prescriptions: New mecobalamin (vitamin B12) 1,000 mcg tablet,disintegrating 1,000 mcg sublingual DAILY Qty: 90 RF: 2 ferrous gluconate 256 mg (28 mg iron) tablet 256 mg PO DAILY Qty: 30 RF: 2 Continued ibuprofen 200 mg Tablet 200 mg PO Q6H PRN (Reason: Pain) RF: 0 melatonin 10 mg Tablet,Disintegrating 10 mg PO HS PRN (Reason: Sleep) RF: 0 Discharge Orders: Discharge Order (Routine); Ordered 01/25/21 Ordered By: Ben Nascimento Admission Data Admit Date/Time: 01/24/21 18:16 Attending Provider: Dione Solis Admit Provider: Malvin Leyva Primary Care Provider: Almas Krause Other Providers: Dione Solis ; Neo Rosales V. Other Interventions: Discharge Summary Assessment (RN) Last Done: 01/25/21 16:07 Supervising Physician Co-Signing Physician Notes I personally examined the patient and verified all cesar points of history and exam, discussed case, and agree with decision making with Dr Nascimento Feeling better overall. Definitely wants to go home. Discussed diagnoses/working diagnoses and plan. Patient and significant other expressed good understanding. They asked good questions, all answered to the best of my ability. Eats a regular dietmost specifically is not vegan Vitals noted, in general she is awake and alert pleasant no distress. HEENT normocephalic atraumatic mucous membranes moist. Breathing unlabored no accessory muscle use good effort. Skin shows no rashes no pallor or icterus. Profound anemia and leukopeniaappears to be related to profound iron deficiency and significant B12 deficiencywhich in turn, given that she has both of these, seems more likely to be a malabsorption syndrome than any sort of slow blood loss. No indication for urgent endoscopic work-upshe has been transfused and her counts are now in a stable range and she feels up to going home/very much wants to go homeand it is stable to send her home with close outpatient follow- up. Replace iron and B12, outpatient follow-up on labsparticularly her celiac panel. Given that celiac disease could explain all of this, if her labs are negative, would recommend an EGD, otherwise questionable benefit of an endoscopic work-up to look for any sort of a "slow ooze" GI bleedgiven that this does not seem overly likely. Given that she has normal platelets and a peripheral smear consistent with iron deficiency anemia, nothing insidious involving the bone marrow seems likely Stable for homefollow-up PCP next week. At that point time rechecking a CBC would be prudent. Reviewing her labsif they are consistent with celiac disease when the antibodies come back, then starting to educate her on management of this, if celiac labs are negative, then would refer to GI for EGD. Repeat iron and B12 levels in about 3 months Resident Activity Tracking Resident Involvement: Resident Care Provided Care Provided: Adult Hospital Medicine
--- NOTE | 2021-01-25 19:10 | Billing Data ---
Date of Service January 25, 2021 Coding Level of Care Code D/C DAY MANAGEMENT >30 MINS
--- NOTE | 2021-01-27 09:41 | Consultation Report ---
HEMATOLOGIC CONSULTATION DATE OF CONSULTATION: 01/24/2021 REASON FOR CONSULTATION: Severe anemia. HISTORY OF PRESENT ILLNESS: Gabby is a very pleasant 25-year-old female patient with history of CO VID-19 infection developed in September of this year, presents to [facility] with sever e anemia. The patient apparently was evaluated by her primary care physician after complaining of fa tigue. Blood work was done including peripheral blood counts revealing a hemoglobin of 3 and iron of 12 and was specifically complaining of intermittent chest pain and pressure. She states her symptom s were subacute in onset. She denies any extraordinary bleeding. Her menstrual flow is regular. Ada jimenez denies any overt gastrointestinal or genitourinary bleeding. Apparently, she is employed as a [employer] and as of late has been cutting back on her work because of increasing fatigue. She does repor t consuming 2-3 hard liquor drinks per night. She denies illicit substances otherwise. To her knowle dge, she has never had a history of anemia and laboratories clearly indicate she has a concurrent vit chong B12 and iron deficiency. She was given a total of 3 packed RBCs. The patient was very candid a t bedside, awake, alert and appropriate. Unsure of the etiology of iron deficiency. Suspect probabl y malabsorption in nature, considering she is deficient in both B12 and folate. I spoke to the [facility] directly regarding her care and I have recommended in addition to transfusional support, alo ps starting her on intramuscular B12 as well as IV iron supplementation. I would be more than happy t o see Gabby in the office as an outpatient. PAST MEDICAL HISTORY: Again, significant for COVID-19 infection in September. She has no other signific ant medical problems and is not on prescription medications at this time. CURRENT MEDICATIONS: Include p.r.n. melatonin and p.r.n. ibuprofen. ALLERGIES: AMOXICILLIN. SOCIAL HISTORY: Employed as a tree planter. Negative for cigarettes or illicit drugs. FAMILY HISTORY: Noncontributory. REVIEW OF SYSTEMS: CONSTITUTIONAL: Negative for fevers, chills or sweats. Positive for fatigue and decreased exercise tolerance. SKIN: No rashes or lesions. No history of dermatoses. HEENT: Positive for lightheadedness. Negative for headaches or vertigo. No acute visual or hearing deficits. No sinus symptoms, sore throat or dysphagia. LYMPHATICS: No history of lymphoproliferative disease. CARDIAC: Negative for coronary artery disease, no angina or palpitations. PULMONARY: Again positive for shortness of breath attributable to her anemic state. No cough or hemo ptysis. GASTROINTESTINAL: Negative for abdominal pain, nausea, vomiting, diarrhea or constipation, hematoche dheeraj or melena stools. GENITOURINARY: No hematuria, dysuria, or urinary incontinence. PSYCHIATRIC: Negative for anxiety, depression, or psychoses. MUSCULOSKELETAL: Negative for arthralgias. No focal muscle weakness. ENDOCRINE: Negative for diabetes or thyroid disease. NEUROLOGIC: Negative for seizure, stroke or migraine headache. HEMATOLOGIC: As per HPI. PHYSICAL EXAMINATION: GENERAL: A very pleasant 25-year-old mature female, awake, alert, appropriate, in no acute distress. VITAL SIGNS: Temperature 37.1, pulse 77, respiratory rate 16, blood pressure 111/67. SKIN: Warm, dry, noncyanotic without petechia, rash or ecchymosis. HEENT: Head atraumatic, normocephalic. Eyes: PERRLA. EOMI. Sclerae nonicteric. No conjunctival i njection. Nares are patent without rhinorrhea or discharge. Throat is clear. Tongue is midline. M ucous membranes are moist. NECK: Supple without JVD or thyromegaly. LYMPHATICS: No cervical, supraclavicular, axillary or inguinal palpable nodes. HEART: Regular rate and rhythm. No clicks, rubs, murmurs or gallops. LUNGS: Clear to auscultation bilaterally. ABDOMEN: Soft, nontender, nondistended, without palpable hepatosplenomegaly. EXTREMITIES: No calf tenderness or swelling. No clubbing, cyanosis or edema. NEUROLOGIC: She is awake, alert and oriented x3. Cranial nerves II through XII are intact. LABORATORY DATA: WBC count 3830, hemoglobin 8.4, MCV 73.7, platelet count 201,000. Coags are within normal limits. Sodium 140, potassium 3.9, chloride 114, carbon dioxide 23, creatinine 0.42, BUN 7, serum iron 12, TIBC 563, ferritin 0.7. IMPRESSION: 1. Iron-deficiency anemia. 2. Vitamin B12 deficiency. 3. Fatigue/decreased exercise tolerance. PLAN: It was my pleasure to visit with Gabby this morning at bedside. Her past medical history is for the most part unremarkable. She presented with a profound anemia and probably the worst iron de ficiency I have seen in my near 20 years of practice. She reports no overt gastrointestinal or genit ourinary bleeding and normal menstrual flow. Thus, I have to conclude there is probably an absorptiv e issue as she is concurrently deficient in both B12 and folate. Perhaps celiac disease is possible. That said, she received 3 units of packed RBCs and 1-2 to go home later today. Advised the apurva gabriel hospitalist I would be more than happy to see Gabby in the office and continue care outpatient. She will most likely require intramuscular B12 and perhaps IV iron to expediently restore deficient i snow stores. I have nothing further to add from a medical standpoint. Thank you very much for allowing me to participate in the care of this very pleasant young lady. Job ID: [id number]
[2021-01-27 11:21] LABS: Erythropoietin 599.7 mIU/mL (2.6-18.5)
== END 2021-01-25 17:05 | disposition home or self-care (01) | DRG 812 ==
LOC: ED 15:26 → 2W 18:16 → 2S 01-25 05:56